=== PATIENT | female | born 1940 | race Caucasian/White ===

== ENCOUNTER 2017-01-22 09:45 | Emergency (ER) | payer MEDICARE ==
[~2017-01-22] VITALS: Ht 154.9 cm; Wt 56.8 kg
[~2017-01-22 09:45] MED LIST: LEVO25TA2 PO; POLY17PO6 PO; SIMV20TA4 PO
[2017-01-22 09:59] VITALS: BP 151/79; PULSE 88; RESP 20; O2SAT 97
--- NOTE | 2017-01-22 10:02 | ED.REPORT ---
HPI-Trauma Minor / Fall Date of Service Jan 22, 2017 ED Provider: Anjum Birch MD Pt is a 76 year old female with a hx of interstitial lung disease and hyperlipidemia presenting to the ED via EMS complaining of right arm and wrist pain onset after a ground level fall just prior to arrival. Associated symptoms include numbness and tingling in her right hand, severe pain in her right shoulder, and an laceration to her right eyebrow. Denies abdominal pain, LOC, neck pain, back pain, or any other symptoms at this time. She was walking across a crosswalk and tripped, landing on her right arm and face. Nursing Notes Stated Complaint: GLF Chief Complaint: Multiple Trauma/Fall Nursing Notes Reviewed: Yes Allergies: Coded Allergies: Sulfa (Sulfonamide Antibiotics) (Verified Allergy, Intermediate, Hives, ) Scheduled Levothyroxine (Synthroid) 25 Mcg Tablet 25 MCG PO DAILY Polyethylene Glycol 3350 (Miralax) 17 Gm Powd.pack 17 GM PO DAILY Simvastatin (Simvastatin) 20 Mg Tablet 20 MG PO HS Scheduled PRN Oxycodone (Roxicodone) 5 Mg Tablet 5-10 MG PO Q4H PRN PRN For Pain General Time Seen by MD: 10:00 Chief Complaint Fall Hx Obtained From: Patient Arrived By: Ambulance Onset Occurred: Just prior to arrival Symptom Duration: Since onset Caused by: Fall on ground Location: Arm right Elbow right Face Quality: Painful Severity: Current: Severe Severity: Maximum: Severe Context: Immunizations Tetanus not up to date Recent Healthcare: No recent doctor visit, No recent hospitalization Similar Sx Previous: No Past Medical History Past Medical History Interstitial lung disease Reports: Hyperlipidemia Past Surgical History x2 bladder surgeries Reports: Hysterectomy Smoking History Never Smoker Social History Alcohol Use: Denies alcohol use Drug Use: Denies drug use Other Social History: Good social support, Ambulatory Status Independent Review of Systems Review of Systems Note: + Abrasion to right eyebrow Musculoskeletal: Reports: Extremity pain (Right pain), Joint pain, Denies: Back pain, Neck pain Neurologic: Denies: Change LOC Complete sys rev & neg: except as marked. GI: Denies: Abdominal pain Physical Exam Initial Vital Signs Vital Signs (First) Date Time Temp Pulse Resp B/P Pulse Ox O2 Delivery O2 Flow Rate FiO2 01/22/17 09:59 36.9 88 20 151/79 97 Room Air Initial VS: Reviewed Head / Eyes: Atraumatic, Normocephalic, PERRL ENT: Mucous membranes moist, Conjunctiva normal, No scleral icterus Respiratory: Breath sounds normal, Clear to auscultation, No respiratory distress Cardiovascular: Regular rate & rhythm, Heart sounds normal, Intact distal pulses Abdomen / GI: Soft, Non-tender, No guarding, No rebound, No distention Neurologic: Alert, Oriented, Nonfocal Psychiatric: Mood/affect normal, Behavior normal, Normal thought content General/Constitutional: Awake, Alert Neck: Atraumatic, Supple, No meningismus, Full range of motion, No swelling, Non-tender, No midline vertebral tend Upper Extremity / MS: Neurologic intact, Vascular intact Subjective numbness in hand. Tenderness to proximal humerus. No deformity. No tenderness or deformity to clavicle or scapula, wrist unaffected. Good ROM of elbow. Symmetric sharp sensation throughout hand and forearm. Skin: Warm, Dry Interpretation & Diagnostics X-Ray Interpretation Xray Interpretation: IMPRESSION: Mildly displaced comminuted proximal right humeral fracture. Dictated by: Edmond Hamilton M.D. on 01/22/2017 at 10:39 X-Ray Ordered: Humerus right Interpretation / Wet Read by: Interpret - Radiologist Procedures Laceration Management Time: 10:16 Procedure Performed by: ED physician Consent / Setup / Site Prep: Consent from patient, Time-out performed, Hand hygiene observed, Stand sterile technique Location of Wound: Right eyebrow Wound Length: 2 cm (2.5) Local Anesthesia: Lidocaine w epi 1% Repair Skin: ___ O (4), Nylon # Sutures - Skin: 5 Post-Procedure / Complications: Antibiotic oint applied, Dressing applied, No complications, Condition improved, Tolerated procedure well, Patient stable Re-Eval/Medical Decision Re-Evaluation/Progress #1: Time of Eval: 10:16 Patient Status: Condition improved Re-Evaluation/Progress Note: Performed laceration management. Pt tolerated procedure well. Re-Evaluation/Progress #2: Time of Eval: 11:12 Patient Status: Condition improved Re-Evaluation/Progress Note: Performed sensory exam. Re-Evaluation/Progress #3: Time of Eval: 11:59 Patient Status: Condition improved Re-Evaluation/Progress Note: Pt reports that she has tried to use Tylenol and Ibuprofen for pain control in the past and had side effects of feeling "spacey." Discussed the plan for discharge. Pt understands and agrees. Counseled Regarding: Diagnosis, Lab results, Need for follow-up, When/why to return to ED Discharge & Departure Impression: Primary Impression: Fall from ground level Additional Impressions: Right humeral fracture Encounter type: initial encounter Fracture type: closed Fracture morphology : comminuted Fracture alignment: displaced Laceration of right eyebrow Encounter type: initial encounter Qualified Code: S01.111A - Laceration without foreign body of right eyelid and periocular area, initial encounter Disposition: Home Discharge Condition All VS Reviewed: Yes Condition: Improved Patient Instructions: Arm Fracture in Adults (ED), Fall Prevention for Children (GEN), Laceration (ED) Additional Instructions: Take the oxycodone 1-3 pills every 4 hours. You will probably have some baseline fogginess, constipation, and nausea, so take necessary precautions. Take Miralax every day. No driving, drinking alcohol, or operating heavy machinery while taking the oxycodone. Follow up with the orthopedist today by phone to make an appointment for next week. Return to the ER to have your stitches removed in 1 week. Call first, to see if it's a good time to come in. Return to the ER if you develop any new or worsening symptoms such as fever, vomiting, weakness, or numbness. The orthopedic doctor will help you understand how to best care for this fracture over time. Referrals: Norberto Jean MD (PCP) Dereje Cross MD Attestation Portions of this note were transcribed by Eliza Parra. I, Dr. Birch personally performed the history, physical exam and medical decision-making; I reviewed and confirmed the accuracy of the information in the transcribed note. Signed by: Taniya Rust, 01/22/2017 at 1230. copies to: Norberto Jean MD; Dereje Cross MD, Kirk H MD Jan 22, 2017 10:01 ELIZA PARRA Jan 22, 2017 10:11
[2017-01-22] MEDS ORDERED: TdaP Vaccine 0.5 mL Inj IM ONE (10:10)
--- NOTE | 2017-01-22 10:41 | DRSVH ---
PROCEDURE: X-RAY RIGHT HUMERUS, MINIMUM TWO VIEWS ([id number]) INDICATIONS: 76 year-old female with right arm pain after fall. TECHNIQUE: 2 views of the humerus were acquired. COMPARISON: None. FINDINGS: Bones: Mildly displaced comminuted fracture of the right humeral neck and greater tuberosity is prese nt. No suspicious lytic or blastic bony lesions. There is mild acromioclavicular joint degeneration. Soft tissues: No suspicious soft tissue calcifications. IMPRESSION: Mildly displaced comminuted proximal right humeral fracture. Dictated by: Edmond Hamilton M.D. on 01/22/2017 at 10:39 Approved by: Edmond Hamilton M.D. on 01/22/2017 at 10:40
[2017-01-22 11:09] VITALS: BP 151/74; PULSE 79; RESP 20; O2SAT 98
[2017-01-22] MEDS ORDERED: HYDROmorphone 1 mg/mL Inj IM ONE (11:15)
[2017-01-22] MEDS ORDERED: Ondansetron 8 mg ODT Tablet PO ONE (11:15)
[2017-01-22 12:23] VITALS: BP 134/80; PULSE 77; RESP 20; O2SAT 93
[2017-01-22] MEDS ORDERED: OXYC-474 PO (12:36)
[2017-01-22 12:50] VITALS: BP 134/80; PULSE 77; RESP 20; O2SAT 93
== END 2017-01-22 12:38 | disposition home or self-care (01) ==
LOC: EDUNIT# 09:45 → SED 09:45 → EDBD 09:45 → SED 12:38
DX: S42.201A Unspecified fracture of upper end of right humerus, initial encounter for closed fracture (principal); S01.111A Laceration without foreign body of right eyelid and periocular area, initial encounter; W18.30XA Fall on same level, unspecified, initial encounter; Y93.9 Activity, unspecified; Y92.9 Unspecified place or not applicable; Y99.9 Unspecified external cause status; E78.5 Hyperlipidemia, unspecified; Z90.710 Acquired absence of both cervix and uterus; Z88.2 Allergy status to sulfonamides; Z23 Encounter for immunization
CPT/HCPCS: 12011; 73060; 90471; 90715; 96372; 99284; J1170; J1885

== ENCOUNTER 2017-01-29 08:11 | Emergency (ER) | payer MEDICARE ==
[~2017-01-29] VITALS: Ht 154.9 cm; Wt 56.8 kg
[~2017-01-29 08:11] MED LIST changes: +OXYC-474 PO
[2017-01-29 08:13] VITALS: BP 132/79; PULSE 87; RESP 10; O2SAT 95
== END 2017-01-29 08:33 | disposition home or self-care (01) ==
LOC: SED 08:11
DX: Z48.02 Encounter for removal of sutures (principal)